=== PATIENT | male | born 1980 | race African-American/Black ===

== ENCOUNTER 2017-01-29 18:41 | Emergency (ER) | payer OTHER ==
[~2017-01-29] VITALS: Ht 182.9 cm; Wt 72.6 kg
[~2017-01-29 18:41] MED LIST: METO5TAB PO; OMEP40CA5 PO
--- NOTE | 2017-01-29 18:58 | PHYS DOC ---
Past Medical History Past Medical History: Bipolar, GERD Additional Past Medical Histor: pt denies any history, possibly has gastritis hx Past Surgical History: No Surgical History Additional Past Surgical Histo: EGD 01/2013 Alcohol Use: None Drug Use: None Adult General Chief Complaint Chief Complaint: CHEST PAIN HPI HPI Patient is a 36 year old male presenting to the emergency department for evaluation of chest pain abdominal pain and back pain started approximately 1 hour prior to arrival. He says it is sharp shooting pain that starts in his low mid chest and goes to his epigastric abdomen and then straight through to his back. Extends somewhat nauseated and he threw up nonbloody nonbilious emesis 1 time prior to arrival. He denies any diaphoresis or shortness of breath. He does not have diabetes hypertension or high cholesterol but he does smokes cigarettes but denies any family history of heart disease. He has a perc score equal to 0. Review of Systems Review of Systems Constitutional: Denies fever or chills [] Eyes: Denies change in visual acuity, redness, or eye pain [] HENT: Denies nasal congestion or sore throat [] Respiratory: Denies cough or shortness of breath [] Cardiovascular: +CP GI: + abdominal pain, nausea, vomiting. No bloody stools or diarrhea [] : Denies dysuria or hematuria [] Musculoskeletal: + back pain or joint pain [] Integument: Denies rash or skin lesions [] Neurologic: Denies headache, focal weakness or sensory changes [] Current Medications Current Medications Current Medications Medications (Trade) Dose Ordered Sig/Vipul Start Time Stop Time Status Last Admin Dose Admin Morphine Sulfate 5 mg 1X ONCE 01/29/17 19:00 01/29/17 19:03 DC 01/29/17 19:31 5 MG Multi-Ingredient Mouthwash/Gargle (Gi Cocktail Single Dose) 15 ml 1X ONCE 01/29/17 19:00 01/29/17 19:03 DC 01/29/17 19:20 15 ML Ondansetron HCl (Zofran) 8 mg 1X ONCE 01/29/17 19:00 01/29/17 19:03 DC 01/29/17 19:22 8 MG Pantoprazole Sodium (Protonix Vial) 40 mg 1X ONCE 01/29/17 19:00 01/29/17 19:03 DC 01/29/17 19:28 40 MG Allergies Allergies Allergies Coded Allergies Type Severity Reaction Last Updated Verified No Known Drug Allergies 10/11/13 No Physical Exam Physical Exam Constitutional: Well developed, well nourished, no acute distress, non-toxic appearance. [] HENT: Normocephalic, atraumatic, bilateral external ears normal, oropharynx moist, no oral exudates, nose normal. [] Eyes: PERRLA, EOMI, conjunctiva normal, no discharge. [] Neck: Normal range of motion, no tenderness, supple, no stridor. [] Cardiovascular:Heart rate regular rhythm, no murmur [] Lungs & Thorax: Bilateral breath sounds clear to auscultation [] Abdomen: Bowel sounds normal, soft, mild epigastric tenderness, no masses, no pulsatile masses. [] Skin: Warm, dry, no erythema, no rash. [] Back: No tenderness, no CVA tenderness. [] Extremities: No tenderness, no cyanosis, no clubbing, ROM intact, no edema. [] Neurologic: Alert and oriented X 3, normal motor function, normal sensory function, no focal deficits noted. [] Current Patient Data Vital Signs Vital Signs Date Time Temp Pulse Resp B/P Pulse Ox O2 Delivery O2 Flow Rate FiO2 01/29/17 19:31 17 98 Room Air 01/29/17 18:51 99.3 79 116/66 99.3 Lab Values Laboratory Tests Test 01/29/17 19:10 White Blood Count 6.4x10^3/uL (4.0-11.0) Red Blood Count 4.85x10^6/uL (4.30-5.70) Hemoglobin 15.3g/dL (13.0-17.5) Hematocrit 45.4% (39.0-53.0) Mean Corpuscular Volume 94fL (79-100) Mean Corpuscular Hemoglobin 32pg (25-35) Mean Corpuscular Hemoglobin Concent 34g/dL (31-37) Red Cell Distribution Width 13.6% (11.5-14.5) Platelet Count 116x10^3/uL (140-400) L Neutrophils (%) (Auto) 63% (31-73) Lymphocytes (%) (Auto) 31% (24-48) Monocytes (%) (Auto) 4% (0-9) Eosinophils (%) (Auto) 2% (0-3) Basophils (%) (Auto) 1% (0-3) Neutrophils # (Auto) 4.0x10^3uL (1.8-7.7) Lymphocytes # (Auto) 2.0x10^3/uL (1.0-4.8) Monocytes # (Auto) 0.3x10^3/uL (0.0-1.1) Eosinophils # (Auto) 0.1x10^3/uL (0.0-0.7) Basophils # (Auto) 0.0x10^3/uL (0.0-0.2) Sodium Level 140mmol/L (136-145) Potassium Level 4.1mmol/L (3.5-5.1) Chloride Level 104mmol/L (98-107) Carbon Dioxide Level 28mmol/L (21-32) Anion Gap 8 (6-14) Blood Urea Nitrogen 9mg/dL (8-26) Creatinine 1.1mg/dL (0.7-1.3) Estimated GFR (Cockcroft-Gault) 92.7 BUN/Creatinine Ratio 8 (6-20) Glucose Level 94mg/dL (70-99) Calcium Level 9.0mg/dL (8.5-10.1) Total Bilirubin 0.3mg/dL (0.2-1.0) Aspartate Amino Transferase (AST) 21U/L (15-37) Alanine Aminotransferase (ALT) 20U/L (16-63) Alkaline Phosphatase 54U/L (46-116) Troponin I Quantitative < 0.017ng/mL (0.000-0.055) BU-Dzi-[id number]-Type Natriuretic Peptide 14pg/mL (0-124) Total Protein 7.1g/dL (6.4-8.2) Albumin 3.7g/dL (3.4-5.0) Albumin/Globulin Ratio 1.1 (1.0-1.7) Lipase 191U/L (73-393) Ethyl Alcohol Level < 10mg/dL (0-10) Laboratory Tests 01/29/17 19:10 Laboratory Tests 01/29/17 19:10 EKG EKG Normal sinus rhythm at 73 beats a minute with normal axis no deviation and no obvious ST elevation or depression. There is a looking morphology to V three's ST segments however this is very similar in appearance to EKG done on October on comparison Radiology/Procedures Radiology/Procedures Normal mediastinum and normal heart size and no obvious free air or opacity. Course & Med Decision Making Course & Med Decision Making Patient with nonspecific chest abdomen and back tenderness. I stronger suspicion is that this is noncardiac and more likely GI such as gastritis. His workup is completely normal and his pain was resolved with treatment including GI cocktail. His heart score is equal to 1 based offers factors. I strongly recommended repeat EKG and troponin however patient and mother refused stating that he felt well and they wanted to go home and they will follow with her primary care provider. 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 Dragon Disclaimer Dragon Disclaimer This electronic medical record was generated, in whole or in part, using a voice recognition dictation system. Departure Departure Impression: Primary Impression: Chest pain, atypical Additional Impression: Abdominal pain Disposition: 01 HOME, SELF-CARE Condition: GOOD Referrals: PATRICIA WISE MD (PCP) Patient Instructions: Gastritis, Adult Scripts Ondansetron (Zofran Odt)4 Mg Tab.rapdis1 Tab SL Q8HRS #10 TAB Prov:ROSALINDA DURAN DO 01/29/17 Problem Qualifiers Additional Impression: Abdominal pain Abdominal location: epigastric Qualified Code: R10.13 - Epigastric pain ROSALINDA DURAN DO Jan 29, 2017 18:58
[2017-01-29] MEDS ORDERED: MORPHINE SULFATE 10 MG/ML VIAL. IV ONE (19:00)
[2017-01-29] MEDS ORDERED: LIDO:MAALOX:DONNATAL 1:1:1 15 ML SINGLE DOSE SWSW ONE (19:00)
[2017-01-29] MEDS ORDERED: ONDANSETRON PF 4 MG/2 ML VIAL. IV ONE (19:00)
[2017-01-29] MEDS ORDERED: PANTOPRAZOLE IV PUSH 40 MG VIAL. IVP ONE (19:00)
[2017-01-29 19:21] LABS: BASO % 1 % (0-3); EOS % 2 % (0-3); HEMATOCRIT 45.4 % (39.0-53.0); HEMOGLOBIN 15.3 g/dL (13.0-17.5); LYMPH % 31 % (24-48); MEAN CORPUSCULAR HEMOGLOBIN 32 pg (25-35); MEAN CORPUSCULAR HGB CONC 34 g/dL (31-37); MEAN CORPUSCULAR VOLUME 94 fL (79-100); MONO % 4 % (0-9); NEUT % 63 % (31-73); PLATELET COUNT 116 x10^3/uL (140-400); RED BLOOD COUNT 4.85 x10^6/uL (4.30-5.70); RED CELL DISTRIBUTION WIDTH 13.6 % (11.5-14.5); WHITE BLOOD COUNT 6.4 x10^3/uL (4.0-11.0)
[2017-01-29 19:37] LABS: CREATININE 1.1 mg/dL (0.7-1.3); GFR 92.7; POTASSIUM 4.1 mmol/L (3.5-5.1)
[2017-01-29 19:43] LABS: ALBUMIN 3.7 g/dL (3.4-5.0); ALBUMIN/GLOBULIN RATIO 1.1 (1.0-1.7); TOTAL BILIRUBIN 0.3 mg/dL (0.2-1.0); TOTAL PROTEIN 7.1 g/dL (6.4-8.2)
[2017-01-29 19:45] VITALS: BP 104/67
[2017-01-29] MEDS ORDERED: ONDA4TAB10 SL (20:13)
[2017-01-29 20:20] LABS: BARBITURATES NEG (NEG); BENZODIAZEPINES NEG (NEG); CANNABINOIDS NEG (NEG); COCAINE NEG (NEG); METHADONE NEG (NEG); OPIATES POS (NEG); PHENCYCLIDINE NEG (NEG)
--- NOTE | 2017-01-30 07:47 | EKG ---
[facility] [address] [place] [address] Test Date: 2017-01-29 Test Time: 18:51:28 Pat Name: RAMESH MURPHY Department: Room: Gender: M Mortgage Counselor: : 1980 Requested By: ROSALINDA DURAN Order Number: [id number] Reading MD: Puneet Terrazas Measurements Intervals [place] Rate: 73 P: 54 SD: 144 QRS: 77 QRSD: 86 T: 32 QT: 386 QTc: 429 Interpretive Statements SINUS RHYTHM NON-SPECIFIC ST/T CHANGES Electronically Signed On 02-02-2017 9:51:12 CDT by Puneet Terrazas
--- NOTE | 2017-01-30 08:40 | RAD ---
Portable AP upright view CXR: Clinical indications: Chest pain today. Comparison: January 28, 2016. Findings: No acute lung infiltrate or pleural effusion or pulmonary edema or lung mass or pneumothorax is seen. The heart size, pulmonary vasculature, mediastinum and both lewis are unremarkable. Impression: No acute radiographic abnormality is seen.
[2017-02-11] MEDS ORDERED: PALI117D IM (14:44)
== END 2017-01-29 21:00 | disposition home or self-care (01) ==
LOC: ER 18:41
DX: R07.89 Other chest pain (principal); R10.9 Unspecified abdominal pain; K21.9 Gastro-esophageal reflux disease without esophagitis; F31.9 Bipolar disorder, unspecified
CPT/HCPCS: 36415; 71010; 80053; 80305; 80320; 83690; 83880; 84484; 85027; 93005; 96374; 96375; 99285; C9113; J2270; J2405; G0480; G0481

== ENCOUNTER 2017-02-01 04:26 | Emergency (ER) | payer OTHER ==
[~2017-02-01] VITALS: Ht 182.9 cm; Wt 72.6 kg
[~2017-02-01 04:26] MED LIST changes: +ONDA4TAB10 SL
--- NOTE | 2017-02-01 04:29 | PHYS DOC ---
Past Medical History Past Medical History: Bipolar, GERD Additional Past Medical Histor: pt denies any history, possibly has gastritis hx Past Surgical History: No Surgical History Additional Past Surgical Histo: EGD 01/2013 Alcohol Use: None Drug Use: None Adult General Chief Complaint Chief Complaint: ABDOMINAL PAIN HPI HPI Patient is a 36 year old male presenting to the emergency department for evaluation of back pain relating to his epigastrium associated with nausea and vomiting. Patient was seen earlier in the evening for costochondritis and sent home on Percocet. Pain and vomiting is now intractable. No fevers chills diarrhea dysuria hematuria. He appears uncomfortable but in no obvious distress with normal vital signs. Review of Systems Review of Systems Constitutional: Denies fever or chills [] Eyes: Denies change in visual acuity, redness, or eye pain [] HENT: Denies nasal congestion or sore throat [] Respiratory: Denies cough or shortness of breath [] Cardiovascular: No additional information not addressed in HPI [] GI: + abdominal pain, nausea, vomiting. No diarrhea [] : Denies dysuria or hematuria [] Musculoskeletal: Denies back pain or joint pain [] Integument: Denies rash or skin lesions [] Neurologic: Denies headache, focal weakness or sensory changes [] Current Medications Current Medications Current Medications Medications (Trade) Dose Ordered Sig/Vipul Start Time Stop Time Status Last Admin Dose Admin Info (Do NOT chart on this entry -- for MONITORING) 1 each PRN DAILY PRN 02/01/17 05:15 02/03/17 05:14 Iohexol (Omnipaque 300 Mg/ml) 75 ml 1X ONCE 02/01/17 05:30 02/01/17 05:31 DC 02/01/17 05:43 75 ML Morphine Sulfate 5 mg 5 mg 1X ONCE 02/01/17 05:15 02/01/17 05:16 DC 02/01/17 05:31 5 MG Multi-Ingredient Mouthwash/Gargle (Gi Cocktail Single Dose) 15 ml 1X ONCE 02/01/17 05:15 02/01/17 05:16 DC 02/01/17 05:31 15 ML Ondansetron HCl (Zofran) 8 mg 1X ONCE 02/01/17 05:15 02/01/17 05:16 DC 02/01/17 05:31 8 MG Pantoprazole Sodium (Protonix Vial) 40 mg 1X ONCE 02/01/17 05:15 02/01/17 05:16 DC 02/01/17 05:32 40 MG Sodium Chloride (Iv Sodium Chloride 0.9% 1000ml Bag) 1,000 ml @ 1,000 mls/hr 1X ONCE 02/01/17 05:00 02/01/17 05:59 DC 02/01/17 05:32 1,000 MLS/HR Allergies Allergies Allergies Coded Allergies Type Severity Reaction Last Updated Verified No Known Drug Allergies 10/11/13 No Physical Exam Physical Exam Constitutional: Well developed, well nourished, no acute distress, non-toxic appearance. [] HENT: Normocephalic, atraumatic, bilateral external ears normal, oropharynx moist, no oral exudates, nose normal. [] Eyes: PERRLA, EOMI, conjunctiva normal, no discharge. [] Neck: Normal range of motion, no tenderness, supple, no stridor. [] Cardiovascular:Heart rate regular rhythm, no murmur [] Lungs & Thorax: Bilateral breath sounds clear to auscultation [] Abdomen: Bowel sounds normal, soft, + epigastric tenderness, no masses, no pulsatile masses. [] Skin: Warm, dry, no erythema, no rash. [] Back: No tenderness, no CVA tenderness. [] Extremities: No tenderness, no cyanosis, no clubbing, ROM intact, no edema. [] Neurologic: Alert and oriented X 3, normal motor function, normal sensory function, no focal deficits noted. [] Current Patient Data Vital Signs Vital Signs Date Time Temp Pulse Resp B/P Pulse Ox O2 Delivery O2 Flow Rate FiO2 02/01/17 05:31 20 Room Air 02/01/17 04:35 98.0 78 118/70 100 98.0 Lab Values Laboratory Tests Test 02/01/17 05:30 White Blood Count 7.9x10^3/uL (4.0-11.0) Red Blood Count 5.32x10^6/uL (4.30-5.70) Hemoglobin 16.9g/dL (13.0-17.5) Hematocrit 48.9% (39.0-53.0) Mean Corpuscular Volume 92fL (79-100) Mean Corpuscular Hemoglobin 32pg (25-35) Mean Corpuscular Hemoglobin Concent 35g/dL (31-37) Red Cell Distribution Width 14.0% (11.5-14.5) Platelet Count 132x10^3/uL (140-400) L Neutrophils (%) (Auto) 75% (31-73) H Lymphocytes (%) (Auto) 21% (24-48) L Monocytes (%) (Auto) 3% (0-9) Eosinophils (%) (Auto) 1% (0-3) Basophils (%) (Auto) 0% (0-3) Neutrophils # (Auto) 5.9x10^3uL (1.8-7.7) Lymphocytes # (Auto) 1.7x10^3/uL (1.0-4.8) Monocytes # (Auto) 0.2x10^3/uL (0.0-1.1) Eosinophils # (Auto) 0.1x10^3/uL (0.0-0.7) Basophils # (Auto) 0.0x10^3/uL (0.0-0.2) Sodium Level 138mmol/L (136-145) Potassium Level 4.0mmol/L (3.5-5.1) Chloride Level 102mmol/L (98-107) Carbon Dioxide Level 30mmol/L (21-32) Anion Gap 6 (6-14) Blood Urea Nitrogen 9mg/dL (8-26) Creatinine 1.1mg/dL (0.7-1.3) Estimated GFR (Cockcroft-Gault) 92.7 BUN/Creatinine Ratio 8 (6-20) Glucose Level 106mg/dL (70-99) H Calcium Level 9.7mg/dL (8.5-10.1) Total Bilirubin 1.6mg/dL (0.2-1.0) H Aspartate Amino Transferase (AST) 97U/L (15-37) H Alanine Aminotransferase (ALT) 89U/L (16-63) H Alkaline Phosphatase 93U/L (46-116) Troponin I Quantitative < 0.017ng/mL (0.000-0.055) Total Protein 8.4g/dL (6.4-8.2) H Albumin 4.3g/dL (3.4-5.0) Albumin/Globulin Ratio 1.0 (1.0-1.7) Lipase 127U/L (73-393) Laboratory Tests 02/01/17 05:30 Laboratory Tests 02/01/17 05:30 EKG EKG [] Radiology/Procedures Radiology/Procedures [] Course & Med Decision Making Course & Med Decision Making Patient will get labs CT and be treated for his symptoms. Workup pending at this time so we'll transfer care to Dr. Dodd and have her disposition the patient appropriately. Dragon Disclaimer Dragon Disclaimer This electronic medical record was generated, in whole or in part, using a voice recognition dictation system. Departure Departure Impression: Primary Impression: Abdominal pain Additional Impression: Nausea & vomiting Referrals: KELLY JERRY (PCP) Problem Qualifiers Primary Impression: Abdominal pain Abdominal location: epigastric Qualified Code: R10.13 - Epigastric pain ROSALINDA DURAN DO February 01, 2017 04:29
[2017-02-01] MEDS ORDERED: IV NORMAL SALINE 1000ML BAG 1,000 ML IV ONE (05:00)
[2017-02-01] MEDS ORDERED: ONDANSETRON PF 4 MG/2 ML VIAL. IV ONE (05:15)
[2017-02-01] MEDS ORDERED: MORPHINE SULFATE 10 MG/ML VIAL. IV ONE (05:15)
[2017-02-01] MEDS ORDERED: LIDO:MAALOX:DONNATAL 1:1:1 15 ML SINGLE DOSE SWSW ONE (05:15)
[2017-02-01] MEDS ORDERED: PANTOPRAZOLE IV PUSH 40 MG VIAL. IVP ONE (05:15)
[2017-02-01] MEDS ORDERED: CONTRAST GIVEN MC PRN (05:15)
[2017-02-01] MEDS ORDERED: IOHEXOL 300 MG/ML 75 ML VIAL IV ONE (05:30)
[2017-02-01 05:53] LABS: BASO % 0 % (0-3); EOS % 1 % (0-3); HEMATOCRIT 48.9 % (39.0-53.0); HEMOGLOBIN 16.9 g/dL (13.0-17.5); LYMPH # 1.7 x10^3/uL (1.0-4.8); LYMPH % 21 % (24-48); MEAN CORPUSCULAR HEMOGLOBIN 32 pg (25-35); MEAN CORPUSCULAR HGB CONC 35 g/dL (31-37); MEAN CORPUSCULAR VOLUME 92 fL (79-100); MONO % 3 % (0-9); NEUT % 75 % (31-73); PLATELET COUNT 132 x10^3/uL (140-400); RED BLOOD COUNT 5.32 x10^6/uL (4.30-5.70); WHITE BLOOD COUNT 7.9 x10^3/uL (4.0-11.0)
[2017-02-01 05:54] LABS: CALCIUM 9.7 mg/dL (8.5-10.1); CREATININE 1.1 mg/dL (0.7-1.3); GFR 92.7
[2017-02-01 05:59] LABS: ALBUMIN 4.3 g/dL (3.4-5.0); TOTAL BILIRUBIN 1.6 mg/dL (0.2-1.0); TOTAL PROTEIN 8.4 g/dL (6.4-8.2)
--- NOTE | 2017-02-01 06:15 | RAD ---
PROCEDURE CT abdomen pelvis with contrast HISTORY Epigastric pain TECHNIQUE After IV infusion of95 cc of Optiray-320, helical CT scanning of the abdomen and pelvis was performed.GI contrast was not administered. COMPARISON January 11, 2015 FINDINGS The common bile duct is dilated to 13 millimeters and there is mild dilated intrahepatic biliary tree seen previously. There are multiple stones in the gallbladder but no wall thickening or surrounding inflammation. The spleen is unremarkable and normal in size. The pancreas is homogeneous in appearance and no focal enlargement is seen. The gallbladder appears normal and no intra or extrahepatic biliary ductal dilatation is seen. No focal aneurysmal dilatation of the abdominal aorta is seen. No enlarged abdominal or pelvic lymphadenopathy is seen. No soft tissue mass is seen. No obstructive bowel pattern or bowel wall thickening or inflammatory change is seen. No free intraperitoneal fluid or abscess or free intraperitoneal air is seen. The lung bases are clear. Both kidneys are functioning and no hydronephrosis or renal mass or perinephric fluid collection is seen. The urinary bladder wall is smooth. No adrenal masses are seen. [The appendix is normal. IMPRESSION 1. Cholelithiasis without evidence of acute cholecystitis. 2. Dilated intrahepatic and extrahepatic biliary tree seen previously. PQRS Statement: One or more of the following individualized dose reduction techniques were utilized for this study: 1. Automated exposure control. 2. Adjustment of the mA and/or kV according to patient size. 3. Use of iterative reconstruction technique. Electronically signed by: Fabien Hopson MD (February 01, 2017 06:12:46)
[2017-02-01 06:50] LABS: BARBITURATES NEG (NEG); BENZODIAZEPINES NEG (NEG); CANNABINOIDS NEG (NEG); COCAINE NEG (NEG); METHADONE NEG (NEG); OPIATES POS (NEG); PHENCYCLIDINE NEG (NEG)
[2017-02-01 06:51] LABS: BILIRUBIN,URINE NEGATIVE (NEG); GLUCOSE,URINE NEGATIVE (NEG); NITRITE,URINE NEGATIVE (NEG); PH,URINE 8.5; PROTEIN,URINE NEGATIVE (NEG-TRACE)
[2017-02-01 07:02] LABS: BACTERIA,URINE 0 /HPF (0-FEW); RBC,URINE 0 /HPF (0-2); SQUAMOUS EPITHELIAL CELL,UR OCC /LPF; WBC,URINE 0 /HPF (0-4)
[2017-02-01] MEDS ORDERED: IBUP-1060 PO (07:05)
[2017-02-01 07:14] VITALS: BP 112/65
== END 2017-02-01 07:30 | disposition home or self-care (01) ==
LOC: ER 04:26
DX: K80.20 Calculus of gallbladder without cholecystitis without obstruction (principal); K21.9 Gastro-esophageal reflux disease without esophagitis; F31.9 Bipolar disorder, unspecified; M94.0 Chondrocostal junction syndrome [Tietze]
CPT/HCPCS: 36415; 74177; 80053; 80305; 80320; 81001; 83690; 84484; 85027; 96361; 96374; 96375; 99285; C9113; J2270; J2405; J7030; Q9967; G0480; G0481

== ENCOUNTER 2019-07-20 01:09 | Emergency (ER) | payer OTHER ==
[~2019-07-20] VITALS: Ht 180.3 cm; Wt 68.0 kg
[~2019-07-20 01:09] MED LIST changes: +IBUP-1060 PO; +OMEP40CA45 PO; -OMEP40CA5 PO; +OXYC1TAB7 PO; +PALI117D IM
[2019-07-20 01:35] VITALS: BP 127/76
[2019-07-20] MEDS ORDERED: PANT40TA77 PO (02:56)
[2019-07-20] MEDS ORDERED: SULF5DRO EACHEYE (02:56)
--- NOTE | 2019-07-20 02:56 | PHYS DOC ---
Past Medical History Past Medical History: No Pertinent History Additional Past Medical Histor: pt denies any history, possibly has gastritis hx Past Surgical History: No Surgical History Additional Past Surgical Histo: EGD 01/2013 Alcohol Use: None Drug Use: None Adult General Chief Complaint Chief Complaint: BACK PAIN - NO INJURY HPI HPI Patient is a 39 yo male with some developmental delay presents with mom with multiple complaints. When asked he says he has back pain, epigastric pain and his eye is red. Patient denies any injury to his back and has normal rang of motion without point tenderness. He describes burning sensation in his epigastric area after drinking coffee. Patient currently denies pain on exam, no nausea, vomiting, diarrhea, chest pain or SOB. Patient does have a cough. Denies headache or visual changes Review of Systems Review of Systems Constitutional: Denies fever or chills [] Eyes: bialteral eye redness/irritation HENT: Denies nasal congestion or sore throat [] Respiratory: +cough, no shortness of breath [] Cardiovascular: No additional information not addressed in HPI [] GI: + epigastric pain, no nausea, vomiting, bloody stools or diarrhea [] : Denies dysuria or hematuria [] Integument: Denies rash or skin lesions [] Neurologic: Denies headache, focal weakness or sensory changes [] All other systems were reviewed and found to be within normal limits, except as documented in this note. Allergies Allergies Allergies Coded Allergies Type Severity Reaction Last Updated Verified No Known Drug Allergies 02/16/17 No Physical Exam Physical Exam Constitutional: Well developed, well nourished, no acute distress, non-toxic appearance. [] HENT: Normocephalic, atraumatic, bilateral external ears normal, oropharynx moist, no oral exudates, nose normal. [] Eyes: PERRLA, EOMI, bialteral conjunctival redness with drainage [] Cardiovascular:Heart rate regular rhythm, no murmur [] Lungs & Thorax: Bilateral breath sounds clear to auscultation [] Abdomen: Bowel sounds normal, soft, no tenderness, no masses, no pulsatile masses. [] Skin: Warm, dry, no erythema, no rash. [] Back: No tenderness, no CVA tenderness. [] Extremities: No tenderness, no cyanosis, no clubbing, ROM intact, no edema. [] Neurologic: Alert and oriented X 3, no focal deficits noted. [] Psychologic: Affect normal, judgement normal, mood normal. [] Current Patient Data Vital Signs Vital Signs Date Time Temp Pulse Resp B/P (MAP) Pulse Ox O2 Delivery O2 Flow Rate FiO2 07/20/19 01:35 98.9 97 14 127/76 (93) 99 Room Air 98.9 EKG EKG [] Radiology/Procedures Radiology/Procedures [] Course & Med Decision Making Course & Med Decision Making Pertinent Labs and Imaging studies reviewed. (See chart for details) []Patient is a 39 yo male with some developmental delay presents with mom with multiple complaints. When asked he says he has back pain, epigastric pain and his eye is red. Patient denies any injury to his back and has normal rang of motion without point tenderness. He describes burning sensation in his epigastric area after drinking coffee. Patient currently denies pain on exam, no nausea, vomiting, diarrhea, chest pain or SOB. Patient does have a cough. Denies headache or visual changes Dragon Disclaimer Dragon Disclaimer This electronic medical record was generated, in whole or in part, using a voice recognition dictation system. Departure Departure Impression: Primary Impression: GERD (gastroesophageal reflux disease) Additional Impression: Acute atopic conjunctivitis, right eye Disposition: 01 HOME, SELF-CARE Condition: STABLE Referrals: KELLY JERRY (PCP) Patient Instructions: Conjunctivitis (Viral and Bacterial), Gastroesophageal Reflux Disease, Adult Additional Instructions: Recommend follow up with PCP 3 - 5 days Return to the ER with worsening symptoms, intractable pain, fever, altered mental status Tylenol/Motrin as needed for pain Take medications as prescribed Scripts Sulfacetamide Sodium (BLEPH-10) 5 Ml Drops 2 DROP EACHEYE TID for 5 Days, #1 ML 0 Refills Prov: ALEXANDER DONG MD 07/20/19 Pantoprazole Sodium (PROTONIX ) 40 Mg Tablet. 40 MG PO DAILYAC for GERD for 30 Days, #30 TAB Prov: ALEXANDER DONG MD 07/20/19 Problem Qualifiers Primary Impression: GERD (gastroesophageal reflux disease) Esophagitis presence: esophagitis presence not specified Qualified Codes: K21.9 - Gastro-esophageal reflux disease without esophagitis ALEXANDER DONG MD Jul 20, 2019 02:56
== END 2019-07-20 03:15 | disposition home or self-care (01) ==
LOC: ER 01:09
DX: K21.9 Gastro-esophageal reflux disease without esophagitis (principal); H10.11 Acute atopic conjunctivitis, right eye
CPT/HCPCS: 99283